=== PATIENT | female | born 1985 | race Hispanic/Latino ===

== ENCOUNTER 2021-01-04 23:19 | Emergency (ER) | payer SELFPAY ==
--- NOTE | 2021-01-04 23:40 | ER ---
Nurse's Notes [facility] Name: Akanksha Pollard Age: 35 yrs Sex: Female : 1985 Arrival Date: 01/04/2021 Time: 23:22 Bed 16 Private MD: Diagnosis: Foreign body in right ear-insect Presentation: 01/04 23:25 Chief complaint: Patient states: bug flew into her left ear, feels it moving , can't iw get it out. Coronavirus screen: At this time, the client does not indicate any symptoms associated with coronavirus-19. Ebola Screen: Patient negative for fever greater than or equal to 101.5 degrees Fahrenheit, and additional compatible Ebola Virus Disease symptoms Patient denies exposure to infectious person. Patient denies travel to an Ebola-affected area in the 21 days before illness onset. No symptoms or risks identified at this time. Initial Sepsis Screen: Does the patient meet any 2 criteria? No. Patient's initial sepsis screen is negative. Does the patient have a suspected source of infection? No. Patient's initial sepsis screen is negative. Risk Assessment: Do you want to hurt yourself or someone else? Patient reports no desire to harm self or others. Onset of symptoms was January 04, 2021. 23:25 Method Of Arrival: Ambulatory iw 23:25 Acuity: MARIANA 4 iw Historical: - Allergies: 23:26 No Known Allergies; iw - PMHx: 23:26 None; iw - PSHx: 23:26 None; iw - Immunization history:: Adult Immunizations up to date. - Social history:: Smoking status: Patient denies any tobacco usage or history of. Screenin:33 Abuse screen: Denies threats or abuse. Nutritional screening: No deficits noted. bb Tuberculosis screening: No symptoms or risk factors identified. Fall Risk None identified. Assessment: 23:33 General: Appears in no apparent distress. uncomfortable, Behavior is anxious. Pain: bb Complains of pain in right ear. Neuro: Level of Consciousness is awake, alert, obeys commands, Oriented to person, place, time, situation. Cardiovascular: No deficits noted. Respiratory: Respiratory effort is even, unlabored, Respiratory pattern is regular. GI: No signs and/or symptoms were reported involving the gastrointestinal system. EENT: Reports bug in right ear. Derm: Skin is pink, warm \T\ dry. Musculoskeletal: Circulation, motion, and sensation intact. 23:45 Reassessment: pt verbalized understanding of and agrees to plan of care discharge bb instructions given pt ambulated with steady gait to exit. Vital Signs: 23:25 BP 144 / 85; Pulse 89; Resp 16; Pulse Ox 100% ; Weight 86.18 kg; Height 5 ft. 3 in. iw (160.02 cm); 23:25 Body Mass Index 33.66 (86.18 kg, 160.02 cm) iw ED Course: 23:22 Patient arrived in ED. cf2 23:26 Triage completed. iw 23:27 Thomas Cerna PA is PHCP. cp 23:27 Maxi Martell MD is Attending Physician. cp 23:33 Patient has correct armband on for positive identification. bb 23:33 No provider procedures requiring assistance completed. Patient did not have IV access bb during this emergency room visit. 23:38 Tamika Duncan MD is Referral Physician. cp Administered Medications: No medications were administered Outcome: 23:40 Discharge ordered by . cp 05 00:05 Discharged to home ambulatory. bb Condition: stable Discharge instructions given to patient, Instructed on discharge instructions, follow up and referral plans. medication usage, Demonstrated understanding of instructions, follow-up care, medications, Prescriptions given X 1. 00:05 Patient left the ED. bb Signatures: Rosetta Sanford RN RN bb Ladonna Lubin RN RN iw Thomas Cerna PA PA cp Ching Frazier cf2 Corrections: (The following items were deleted from the chart) 01/04 23:27 23:25 Pulse 89bpm; Resp 16bpm; Pulse Ox 100%; 86.18 kg; Height 5 ft. 3 in.; BMI: 33.6; iw iw
--- NOTE | 2021-01-04 23:40 | EDPHYS ---
Physician Documentation [facility] Name: Akanksha Pollard Age: 35 yrs Sex: Female : 1985 Arrival Date: 01/04/2021 Time: 23:22 Bed 16 Private MD: ED Physician Maxi Martell HPI: 01/04 23:35 This 35 yrs old Female presents to ER via Ambulatory with complaints of BUG cp FLEW INTO EAR. 23:36 The patient presents with a foreign body sensation, presumably from an insect. The cp complaints affect the right ear. Onset: The symptoms/episode began/occurred just prior to arrival. Associated signs and symptoms: The patient has no apparent associated signs or symptoms. Historical: - Allergies: 23:26 No Known Allergies; iw - PMHx: 23:26 None; iw - PSHx: 23:26 None; iw - Immunization history:: Adult Immunizations up to date. - Social history:: Smoking status: Patient denies any tobacco usage or history of. ROS: 23:36 Constitutional: Negative for body aches, chills, fever, poor PO intake. cp 23:36 ENT: Positive for right ear foreign body, Negative for drainage from ear(s), sore throat, difficulty swallowing, difficulty handling secretions. 23:36 All other systems are negative. Exam: 23:37 Head/Face: Normocephalic, atraumatic. cp 23:37 Constitutional: The patient appears in no acute distress, alert, awake, non-toxic, well developed, well nourished. 23:37 Eyes: Periorbital structures: appear normal, Conjunctiva: normal, no exudate, no injection, Lids and lashes: appear normal, bilaterally. 23:37 ENT: External ear(s): are unremarkable, Ear canal(s): foreign body, an insect, in the right external ear canal, TM's: erythema, that is mild, on the right, Examination of the other ear shows no obvious abnormality, Nose: is normal, Mouth: is normal, Posterior pharynx: Airway: no evidence of obstruction, patent. 23:37 Cardiovascular: Rate: normal. 23:37 Respiratory: the patient does not display signs of respiratory distress, Respirations: normal, no use of accessory muscles. Vital Signs: 23:25 BP 144 / 85; Pulse 89; Resp 16; Pulse Ox 100% ; Weight 86.18 kg; Height 5 ft. 3 in. iw (160.02 cm); 23:25 Body Mass Index 33.66 (86.18 kg, 160.02 cm) Procedures: 23:40 Foreign Body Removal: an insect, from the right ear canal, by tetracaine lavage. The cp patient tolerated the removal well. MDM: 23:27 Patient medically screened. cp 23:38 Data reviewed: vital signs, nurses notes, and as a result, I will discharge patient. cp Counseling: I had a detailed discussion with the patient and/or guardian regarding: the historical points, exam findings, and any diagnostic results supporting the discharge/admit diagnosis, to return to the emergency department if symptoms worsen or persist or if there are any questions or concerns that arise at home. Response to treatment: the patient's symptoms have resolved after treatment, and as a result, I will discharge patient. Administered Medications: No medications were administered Disposition: 23:45 Chart complete. 01/05 05:50 Co-signature as Attending Physician, Maxi Martell MD. [email or web address] Disposition: 01/04/21 23:40 Discharged to Home. Impression: Foreign body in right ear - insect. - Condition is Stable. - Discharge Instructions: Ear Foreign Body. - Prescriptions for Ciprodex 0.3- 0.1 % Otic Drops, Suspension - instill 4 drops by OTIC route every 12 hours for 7 days , for ears ONLY. instill drops in left ear canal; 1 Container. - Medication Reconciliation Form, Thank You Letter, Antibiotic Education, Prescription Opioid Use form. - Follow up: Tamika Duncan MD; When: 1 - 2 days; Reason: Worsening of condition. - Problem is new. - Symptoms are resolved. Signatures: Rosetta Sanford RN RN bb Ladonna Lubin RN RN iw Thomas Cerna PA PA cp Maxi Martell MD MD [email or web address] Corrections: (The following items were deleted from the chart) 00:05 05 23:40 01/04/2021 23:40 Discharged to Home. Impression: Foreign body in right ear bb - insect. Condition is Stable. Discharge Instructions: Ear Foreign Body. Prescriptions for Ciprodex 0.3-0.1 % Otic Drops, Suspension - instill 4 drops by OTIC route every 12 hours for 7 days , for ears ONLY. instill drops in left ear canal; 1 Container. and Forms are Medication Reconciliation Form, Thank You Letter, Antibiotic Education, Prescription Opioid Use. Follow up: Tamika Duncan; When: 1 - 2 days; Reason: Worsening of condition. Problem is new. Symptoms are resolved. cp
[2021-01-05 00:29] VITALS: BP 144/85; O2SAT 100
== END 2021-01-05 00:05 | disposition home or self-care (01) ==
LOC: ER 23:19
DX: T16.1XXA Foreign body in right ear, initial encounter (principal)
CPT/HCPCS: 99281